=== PATIENT | female | born 1995 | race African-American/Black ===

== ENCOUNTER 2023-03-10 15:48 | Emergency (ER) | payer BC, OTHER ==
[2023-03-10 16:04] VITALS: BP 113/62; PULSE 86; RESP 18; TEMP 98.2; BMI 23.8
[2023-03-10 17:11] LABS: BASO % 0.4 % (0-2.0); EOS % 2.4 % (0-4.5); HEMATOCRIT 41.8 % (32.4-45.2); HEMOGLOBIN 13.5 GM/dL (10.7-15.3); LYMPH % 32.7 % (8-40); MCH 29.4 pg (25.7-33.7); MCHC 32.2 g/dl (32.0-36.0); MEAN CELL VOLUME 91.3 fl (80-96); MEAN PLT VOLUME 8.4 fl (7.5-11.1); MONO % 6.4 % (3.8-10.2); NEUT % 58.1 % (42.8-82.8); PLATELET COUNT 245 10^3/uL (134-434); RBC 4.58 M/mm3 (3.60-5.2); RDW 13.7 % (11.6-15.6); WHITE BLOOD COUNT 6.7 K/mm3 (4.0-10.0)
[2023-03-10 17:17] LABS: PH,URINE 6.5 (5.0-8.0); URINE APPEARANCE CLEAR; URINE BILIRUBIN NEGATIVE (NEGATIVE); URINE COLOR YELLOW; URINE GLUCOSE (UA) NEGATIVE (NEGATIVE); URINE KETONE NEGATIVE (NEGATIVE); URINE LEUK ESTERASE NEGATIVE (NEGATIVE); URINE NITRITE NEGATIVE (NEGATIVE); URINE PROTEIN NEGATIVE (NEGATIVE); URINE UROBILINOGEN 0.2 mg/dL (0.2-1.0)
[2023-03-10 17:23] LABS: POTASSIUM 4.1 mmol/L (3.5-5.1)
[2023-03-10 17:25] LABS: ALBUMIN 3.7 g/dl (3.4-5.0); BLOOD UREA NITROGEN 11.7 mg/dL (7-18); CALCIUM 8.9 mg/dL (8.5-10.1)
[2023-03-10 17:25] LABS: HCG,QUALITATIVE URINE Negative
[2023-03-10 17:28] LABS: CREATININE 0.7 mg/dL (0.55-1.3)
[2023-03-10 17:30] LABS: BILIRUBIN,TOTAL 0.2 mg/dL (0.2-1); TOT PROT 7.3 g/dl (6.4-8.2)
[2023-03-10 17:33] LABS: INR 0.95 (0.83-1.09)
[2023-03-10 17:35] LABS: ACTIVATED PTT 34.6 SECONDS (25.2-36.5)
== END 2023-03-10 18:44 | disposition home or self-care (01) ==
LOC: JER 15:48
DX: R07.89 Other chest pain (principal); M54.9 Dorsalgia, unspecified
CPT/HCPCS: 36415; 71046-TC-FY; 80053; 81003; 84484; 84703; 85025; 85379; 85610; 85730; 87086; 93005; 93010; 99285-25